=== PATIENT | female | born 1980 | race Caucasian/White ===

== ENCOUNTER 2023-03-09 17:59 | Observation (INO) | payer OTHER ==
[2023-03-09 18:32] VITALS: BMI 32.0
[2023-03-09] MEDS ORDERED: morphine CARPU-JECT 4 MG/1 ML DISP.SYRIN IVPUSH ONE ×2 (18:51→19:07)
[2023-03-09] MEDS ORDERED: CYCLOBENZAPRINE HCL 10 MG TABLET (FP) PO ONE (18:51)
[2023-03-09] MEDS ORDERED: LACTATED RINGERS SOLUTION 1000 ML INFUS.BAG IV ONE (18:52)
[2023-03-09] MEDS ORDERED: LIDOCAINE 5% TOPICAL PATCH TP ONE (19:01)
[2023-03-09] MEDS ORDERED: GABAPENTIN 300 MG CAPSULE PO ONE (19:07)
[2023-03-09] MEDS ORDERED: GABAPENTIN 300 MG CAPSULE ONE (19:45)
[2023-03-09] MEDS ORDERED: morphine SULFATE 4 MG/ML VIAL ONE (19:45)
[2023-03-09] MEDS ORDERED: CYCLOBENZAPRINE HCL 10 MG TABLET (FP) ONE (19:45)
[2023-03-09] MEDS ORDERED: LIDOCAINE 5% TOPICAL PATCH ONE (19:46)
[2023-03-09 20:39] LABS: EOS % 8.2 % (0-4.5); HEMATOCRIT 34.7 % (32.4-45.2); HEMOGLOBIN 11.4 GM/dL (10.7-15.3); LYMPH % 36.1 % (8-40); MEAN PLT VOLUME 9.6 fl (7.5-11.1); MONO % 6.9 % (3.8-10.2); NEUT % 47.8 % (42.8-82.8); PLATELET COUNT 338 10^3/uL (134-434); RBC 4.23 M/mm3 (3.60-5.2); RDW 22.5 % (11.6-15.6); WHITE BLOOD COUNT 10.9 K/mm3 (4.0-10.0)
[2023-03-09 20:40] LABS: PH,URINE 6.5 (5.0-8.0); URINE APPEARANCE CLEAR; URINE BILIRUBIN NEGATIVE (NEGATIVE); URINE COLOR YELLOW; URINE GLUCOSE (UA) NEGATIVE (NEGATIVE); URINE KETONE NEGATIVE (NEGATIVE); URINE LEUK ESTERASE NEGATIVE (NEGATIVE); URINE NITRITE NEGATIVE (NEGATIVE); URINE PROTEIN NEGATIVE (NEGATIVE); URINE UROBILINOGEN 0.2 mg/dL (0.2-1.0)
[2023-03-09 20:50] LABS: INR 0.93 (0.83-1.09); PROTHROMBIN TIME (PATIENT) 10.8 SEC (9.7-13.0)
[2023-03-09 20:53] LABS: ACTIVATED PTT 32.1 SECONDS (25.2-36.5)
[2023-03-09 21:02] LABS: CALCIUM 8.5 mg/dL (8.5-10.1)
[2023-03-09 21:03] LABS: ALBUMIN 3.2 g/dl (3.4-5.0); BLOOD UREA NITROGEN 15.3 mg/dL (7-18); MAGNESIUM 2.1 mg/dL (1.8-2.4)
[2023-03-09 21:06] LABS: CREATININE 0.9 mg/dL (0.55-1.3)
[2023-03-09 21:07] LABS: BILIRUBIN,TOTAL 0.1 mg/dL (0.2-1); TOT PROT 6.1 g/dl (6.4-8.2)
[2023-03-09 21:16] LABS: ANISOCYTOSIS 2+; MACROCYTOSIS 0; OVALOCYTE 1+; TARGET CELLS 1+
[2023-03-09] MEDS ORDERED: morphine CARPU-JECT 2 MG/1 ML DISP.SYRIN IVPUSH ONE (23:09)
[2023-03-10] MEDS ORDERED: clonazePAM 0.5 MG TABLET PO PRN (08:20)
[2023-03-10 08:34] LABS: BASO % 0.8 % (0-2.0); EOS % 7.7 % (0-4.5); HEMATOCRIT 34.1 % (32.4-45.2); HEMOGLOBIN 10.9 GM/dL (10.7-15.3); LYMPH % 26.1 % (8-40); MCH 26.8 pg (25.7-33.7); MCHC 31.9 g/dl (32.0-36.0); MEAN CELL VOLUME 83.8 fl (80-96); MEAN PLT VOLUME 10.4 fl (7.5-11.1); MONO % 6.9 % (3.8-10.2); NEUT % 58.5 % (42.8-82.8); PLATELET COUNT 332 10^3/uL (134-434); RBC 4.07 M/mm3 (3.60-5.2); RDW 22.4 % (11.6-15.6); WHITE BLOOD COUNT 8.8 K/mm3 (4.0-10.0)
[2023-03-10 08:49] LABS: POTASSIUM 4.6 mmol/L (3.5-5.1)
[2023-03-10 08:50] LABS: CALCIUM 8.4 mg/dL (8.5-10.1)
[2023-03-10 08:51] LABS: BLOOD UREA NITROGEN 13.5 mg/dL (7-18)
[2023-03-10 08:54] LABS: CREATININE 0.7 mg/dL (0.55-1.3)
[2023-03-10] MEDS: levETIRAcetam 500 MG TABLET (FP) PO SCH ×2 (10:34→21:05)
[2023-03-10] MEDS: TAMSULOSIN HCL 0.4 MG CAP PO SCH (10:34)
[2023-03-10] MEDS: IBUPROFEN 600 MG TABLET (FP) PO PRN ×2 (10:34→20:03)
[2023-03-10] MEDS ORDERED: LORazepam 2 MG/ML SDV VIAL IM ONE ×2 (13:00)
[2023-03-10] MEDS: GABAPENTIN 400 MG CAPSULE PO SCH ×2 (13:30→21:05)
[2023-03-10] MEDS: LIDOCAINE PATCH REMOVAL MC SCH ×2 (21:02→22:25)
[2023-03-10 22:09] VITALS: TEMP 98.2
[2023-03-11] MEDS: GABAPENTIN 400 MG CAPSULE PO SCH (06:15)
[2023-03-11] MEDS: IBUPROFEN 600 MG TABLET (FP) PO PRN (06:16)
[2023-03-11 07:09] VITALS: BP 85/44; PULSE 62; RESP 17
[2023-03-11] MEDS: levETIRAcetam 500 MG TABLET (FP) PO SCH (09:37)
[2023-03-11] MEDS: TAMSULOSIN HCL 0.4 MG CAP PO SCH (09:37)
== END 2023-03-11 12:19 | disposition left against medical advice (07) ==
LOC: JER 17:59 → JERBED 03-10 00:07 → J7W 03-10 02:26
PROVIDERS: ADMIT Internal Medicine; ATTEND Internal Medicine
PROC: 30233N1 Transfusion of Nonautologous Red Blood Cells into Peripheral Vein, Percutaneous Approach (ICD-10-PCS; principal; 2023-03-10)
DX: D64.9 Anemia, unspecified (principal); G82.20 Paraplegia, unspecified; L89.159 Pressure ulcer of sacral region, unspecified stage; E78.00 Pure hypercholesterolemia, unspecified; N31.2 Flaccid neuropathic bladder, not elsewhere classified; I10 Essential (primary) hypertension; Z96.0 Presence of urogenital implants; R42 Dizziness and giddiness; Z88.8 Allergy status to other drugs, medicaments and biological substances
CPT/HCPCS: 36415; 71045-TC-FY; 72131-TC; 80048; 80053; 81003; 83735; 84484; 84703; 85025; 85610; 85730; 93005; 93010; 97116-GP; 97162-GP; 99285-25; G0378